=== PATIENT | female | born 1975 | race Caucasian/White ===

== ENCOUNTER → 2024-04-13 13:35 | Outpatient (REF) | payer OTHER, SELFPAY | LOC: WDC 13:35 | PROVIDERS: ATTENDING PHYSICIAN Nurse Practitioner Adult Health; FAMILY PHYSICIAN Family Medicine | DX: Z12.31 Encounter for screening mammogram for malignant neoplasm of breast (principal) | CPT/HCPCS: 77063; 77067 ==

== ENCOUNTER → 2024-05-08 12:41 | Outpatient (REF) | payer OTHER, SELFPAY | LOC: WDC 12:41 | PROVIDERS: ATTENDING PHYSICIAN Nurse Practitioner Adult Health; FAMILY PHYSICIAN Family Medicine | DX: R92.30 Dense breasts, unspecified (principal) | CPT/HCPCS: 76641 ==

== ENCOUNTER → 2024-07-02 09:42 | Outpatient (REF) | payer OTHER, SELFPAY | LOC: RAD 09:42 | PROVIDERS: ATTENDING PHYSICIAN Nurse Practitioner Adult Health; FAMILY PHYSICIAN Family Medicine | DX: M85.80 Other specified disorders of bone density and structure, unspecified site (principal) | CPT/HCPCS: 77080 ==

== ENCOUNTER → 2024-11-12 08:47 | Outpatient (REF) | payer OTHER, SELFPAY | LOC: RAD 08:47 | PROVIDERS: ATTENDING PHYSICIAN Obstetrics & Gynecology Gynecology; FAMILY PHYSICIAN Family Medicine | DX: R10.2 Pelvic and perineal pain (principal) | CPT/HCPCS: 76830; 76856 ==

== ENCOUNTER → 2025-04-27 13:23 | Outpatient (REF) | payer OTHER, SELFPAY | LOC: WDC 13:23 | PROVIDERS: ATTENDING PHYSICIAN Nurse Practitioner Adult Health; FAMILY PHYSICIAN Family Medicine | DX: Z12.31 Encounter for screening mammogram for malignant neoplasm of breast (principal) | CPT/HCPCS: 77063; 77067 ==